=== PATIENT | female | born 1955 | race Hispanic/Latino ===

== ENCOUNTER 2024-09-15 12:24 | Emergency (ER) | payer MEDICARE ==
[~2024-09-15] VITALS: Ht 162.6 cm; Wt 83.9 kg
[2024-09-15 12:36] VITALS: TEMP 98.4
[2024-09-15 13:28] LABS: ALBUMIN 3.8 g/dL (3.5-5.0); ALBUMIN/GLOBULIN RATIO 1.1 (0.8-2.0); ANION GAP 15.1 mmol/L (8-16); BILIRUBIN,TOTAL 0.5 mg/dL (0.2-1.2); CALCIUM 8.6 mg/dL (8.4-10.2); CREATININE, SERUM 0.84 mg/dL (0.57-1.11); POTASSIUM 4.1 mmol/L (3.5-5.1); TOTAL PROTEIN 7.4 g/dL (6.5-8.1)
[2024-09-15 13:33] LABS: TROPONIN I 0.115 ng/mL (0-0.300)
[2024-09-15 13:46] LABS: BASOPHILS % 0.3 % (0.0-1.0); EOSINOPHILS # (AUTO) 0.1 (0.0-0.4); EOSINOPHILS % 2.3 % (0.0-6.0); HEMATOCRIT 38.8 % (34.2-44.1); HEMOGLOBIN 12.3 g/dL (12.0-16.0); LYMPHOCYTES # (AUTO) 2.4 (1.0-3.2); LYMPHOCYTES % 39.1 % (18.0-39.1); MEAN CORPUSCULAR HEMOGLOBIN 29.7 pg (28-32); MEAN CORPUSCULAR HGB CONC 31.7 g/dL (31-35); MEAN CORPUSCULAR VOLUME 93.7 fL (81-99); MONOCYTES # (AUTO) 0.4 (0.2-0.8); MONOCYTES % 6.9 % (4.4-11.3); NEUTROPHILS # (AUTO) 3.2 (2.1-6.9); NEUTROPHILS % 51.2 % (38.7-80.0); PLATELET COUNT 186 x10e3/uL (140-360); RED BLOOD COUNT 4.14 x10e6/uL (3.6-5.1); RED CELL DISTRIBUTION WIDTH 12.6 % (11.7-14.4); WHITE BLOOD COUNT 6.22 x10e3/uL (4.8-10.8)
[2024-09-15] MEDS: ASPIRIN 81 MG CHEW TAB PO ONE (14:29)
[2024-09-15] MEDS: MAGNESIUM SULFATE 2GM/50ML 50 ML IV ONE (14:29)
[2024-09-15 14:30] LABS: INR 0.91; PROTHROMBIN TIME 12.7 seconds (11.9-14.5)
[2024-09-15 14:31] LABS: PARTIAL THROMBOPLASTIN TIME 27.6 seconds (23.8-35.5)
[2024-09-15 16:00] VITALS: PULSE 74; RESP 16
[2024-09-15] MEDS ORDERED: SLOWMAG71.5 MG PO (16:50)
[2024-09-15 17:22] VITALS: BP 129/81; PULSE 86; RESP 17; O2SAT 97
== END 2024-09-15 17:00 | disposition home or self-care (01) ==
LOC: ER 12:46
DX: R20.2 Paresthesia of skin (principal); E83.42 Hypomagnesemia; I10 Essential (primary) hypertension; E11.65 Type 2 diabetes mellitus with hyperglycemia; I50.9 Heart failure, unspecified; E78.5 Hyperlipidemia, unspecified; I25.10 Atherosclerotic heart disease of native coronary artery without angina pectoris; R94.31 Abnormal electrocardiogram [ECG] [EKG]; I25.2 Old myocardial infarction; Z95.5 Presence of coronary angioplasty implant and graft; Z86.73 Personal history of transient ischemic attack (TIA), and cerebral infarction without residual deficits
CPT/HCPCS: 36415; 70450; 71045; 80053; 82550; 83735; 84443; 84484; 85025; 85610; 85730; 93005; 99284; J3475

== ENCOUNTER 2025-08-26 15:29 | Emergency (ER) | payer MEDICARE ==
[~2025-08-26] VITALS: Ht 162.6 cm; Wt 80.7 kg
[~2025-08-26 15:29] MED LIST: SLOWMAG71.5 MG PO
[2025-08-26 18:01] VITALS: PULSE 82; RESP 18; TEMP 98
[2025-08-26] MEDS ORDERED: DIFLUCAN100 MG PO (18:15)
[2025-08-26] MEDS ORDERED: CEFDINIR300 MG PO (18:15)
[2025-08-26 18:51] VITALS: BP 130/88; PULSE 88; RESP 18; O2SAT 98
== END 2025-08-26 18:55 | disposition home or self-care (01) ==
LOC: ER 16:21
DX: R30.0 Dysuria (principal); N39.0 Urinary tract infection, site not specified; B37.31 Acute candidiasis of vulva and vagina; I10 Essential (primary) hypertension; E11.9 Type 2 diabetes mellitus without complications; I50.9 Heart failure, unspecified; E78.5 Hyperlipidemia, unspecified; J45.909 Unspecified asthma, uncomplicated; I25.10 Atherosclerotic heart disease of native coronary artery without angina pectoris; I25.2 Old myocardial infarction; Z86.73 Personal history of transient ischemic attack (TIA), and cerebral infarction without residual deficits; Z95.5 Presence of coronary angioplasty implant and graft
CPT/HCPCS: 99283